=== PATIENT | male | born 1975 | race Caucasian/White ===

== ENCOUNTER 2017-09-02 14:51 | Emergency (ER) | payer BC ==
--- NOTE | 2017-09-02 15:12 | EDM.PDOC ---
ED HPI GENERAL MEDICAL PROBLEM - General Chief Complaint: ENT Problem Stated Complaint: LEFT RED EYE Time Seen by Provider: 09/02/17 14:55 Source of Information: Reports: Patient History Limitations: Reports: No Limitations - History of Present Illness INITIAL COMMENTS - FREE TEXT/NARRATIVE: Patient comes in today with 1 day history of left eye drainage and redness and light sensitivity. Patient states that he does not remember scratching his eye or using any power tools that would have fragments going to his eye. Patient states his eyes started hurting with axis of drainage. He also states that his eye is very itchy. He denies being around any children with conjunctivitis or other infections. Denies any other health concerns dizziness, tiredness, blurred vision, vomiting, or seeing stars Onset: Sudden Improves with: Reports: Rest Associated Symptoms: Reports: No Other Symptoms - Related Data Allergies Allergy/AdvReac Type Severity Reaction Status Date / Time Sulfa (Sulfonamide Allergy Rash Verified 09/02/17 15:01 Antibiotics) Home Meds: Home Meds Aspirin 81 mg PO DAILY 09/02/17 [History] Loratadine [Claritin] 10 mg PO DAILY 09/02/17 [History] Social & Family History - Tobacco Use Smoking Status *Q: Unknown Ever Smoked ED ROS GENERAL - Review of Systems Review Of Systems: See Below Constitutional: Reports: No Symptoms HEENT: Reports: Eye Discharge (photosenitivity ). Denies: Ear Pain, Rhinitis, Sinus Problem, Throat Pain, Vertigo, Vision Change Respiratory: Reports: No Symptoms Cardiovascular: Reports: No Symptoms Skin: Reports: No Symptoms Neurological: Reports: No Symptoms Psychiatric: Reports: No Symptoms ED EXAM GENERAL W FULL EYE - Physical Exam Exam: See Below Exam Limited By: No Limitations General Appearance: Alert, WD/WN, No Apparent Distress Pupillary Size: Bilateral: 3 mm Pupillary Reaction: Bilateral: Brisk Anterior Chamber: Right: Normal Appearance, Left: Other (redness, clear drainage , photosensitivity, itching ) Posterior Chamber: Left: Normal Funduscopic Ears: Normal External Exam, Normal Canal Nose: Normal Inspection, Normal Mucosa, No Blood Throat/Mouth: Normal Inspection Head: Atraumatic, Normocephalic Respiratory/Chest: No Respiratory Distress Cardiovascular: Normal Peripheral Pulses Course - Vital Signs Last Recorded V/S: Last Vital Signs Temp 35.9 C 09/02/17 14:55 Pulse 69 09/02/17 14:55 Resp 18 09/02/17 14:55 BP 138/86 09/02/17 14:55 Pulse Ox 95 09/02/17 14:55 - Orders/Labs/Meds Meds: Medications Discontinued Medications Generic Name Dose Route Start Last Admin Trade Name Maurice PRN Reason Stop Dose Admin Polymyxin/Trimethoprim Sulfate 1 ml 09/02/17 15:06 Polytrim Ophth Soln EYELF 09/02/17 15:07 ONETIME ONE Departure - Departure Time of Disposition: 15:20 Disposition: Home, Self-Care 01 Condition: Good Clinical Impression: Bacterial conjunctivitis of left eye - Discharge Information Forms: ED Department Discharge Additional Instructions: Take eyedrops as prescribed Avoid electronics or sudden eye movements for the next 24 hours to reduce the discomfort Wash hands after touching eyes Place ice over the eye for any discomfort Can take ibuprofen or Tylenol as directed for any pain or fever Diet and activity normal Avoid bright light to reduce irritation Follow up if not better with an chemical processing technician for further diagnostic testing
[2017-09-02] MEDS: Polymyxin B/Trimethoprim 10 ML Bottle EYELF ONE (15:20)
== END 2017-09-02 15:23 | disposition home or self-care (01) ==
LOC: VM.ED 14:51
DX: H10.022 Other mucopurulent conjunctivitis, left eye (principal); Z88.2 Allergy status to sulfonamides; Z79.82 Long term (current) use of aspirin; Z79.899 Other long term (current) drug therapy
CPT/HCPCS: 99282; A9270